=== PATIENT | male | born 1930 | race Caucasian/White ===

== ENCOUNTER → 2016-09-28 | Outpatient (CLI) | payer MEDICARE | LOC: ZCOL.LAB 12:59 | DX: R60.0 Localized edema (principal) ==

== ENCOUNTER 2017-01-02 06:52 | Day surgery (SDC) | payer MEDICARE ==
[~2017-01-02] VITALS: Ht 172.7 cm; Wt 79.1 kg
[2017-01-02 07:45] LABS: HEMATOCRIT 40.6 % (42.0-52.0); HEMOGLOBIN 13.6 g/dl (13.5-18.0); MEAN CELL VOLUME 88 fl (80.0-100.0); MEAN CORPUSCULAR HEMOGLOBIN 29 pg (27.0-31.0); MEAN CORPUSCULAR HGB CONC 34 g/dl (33.0-37.0); MEAN PLATELET VOLUME 9.9 fl (7.4-10.4); PLATELET COUNT 141 K/mm3 (130-400); RED BLOOD COUNT 4.62 M/mm3 (4.20-5.60); WHITE BLOOD COUNT 6.5 K/mm3 (4.8-10.8)
[2017-01-02] MEDS ORDERED: COUMADIN 2MG2 MG/TAB PO (07:52)
[2017-01-02] MEDS ORDERED: CRESTOR 10MG10 MG PO (07:53)
[2017-01-02] MEDS ORDERED: FLOMAX 0.40.4 MG/CAP PO (07:53)
[2017-01-02 07:54] LABS: INR 1.3 (0.8-3.0); PROTHROMBIN TIME 14.9 SECONDS (9.7-12.8)
[2017-01-02] MEDS ORDERED: COREG 3.123.125 MG/T PO (07:54)
[2017-01-02] MEDS ORDERED: PRINIVIL5 MG PO (07:54)
[2017-01-02] MEDS ORDERED: LASIX 20MG TABL20 MG PO (07:55)
[2017-01-02] MEDS ORDERED: VITAMIN D 1001000 IU PO (07:56)
[2017-01-02] MEDS ORDERED: MULTI VITAMINS1 TAB PO (07:57)
[2017-01-02 08:01] LABS: CALCIUM 9.3 mg/dL (8.4-10.2); CREATININE, serum 0.96 mg/dL (0.66-1.25); POTASSIUM 4.2 mmol/L (3.4-5.0)
[2017-01-02 08:15] VITALS: BP 127/66; PULSE 68; TEMP 96.9
[2017-01-02 09:12] VITALS: BP 135/83; PULSE 62
[2017-01-02 09:54] VITALS: BP 151/84; PULSE 61
== END 2017-01-02 09:54 | disposition home or self-care (01) ==
LOC: COL.CAR 06:52
PROVIDERS: Internal Medicine Cardiovascular Disease
DX: I50.9 Heart failure, unspecified (principal); I42.9 Cardiomyopathy, unspecified; I25.10 Atherosclerotic heart disease of native coronary artery without angina pectoris; Z95.1 Presence of aortocoronary bypass graft; I08.0 Rheumatic disorders of both mitral and aortic valves; I27.20 Pulmonary hypertension, unspecified; I48.2 Chronic atrial fibrillation; I25.2 Old myocardial infarction
CPT/HCPCS: Q9967

== ENCOUNTER 2017-10-12 18:46 | Inpatient (IN) | payer MEDICARE ==
[~2017-10-12] VITALS: Ht 172.7 cm; Wt 76.7 kg
[~2017-10-12 18:46] MED LIST: COREG 3.123.125 MG/T PO; COUMADIN 2MG2 MG/TAB PO; CRESTOR 10MG10 MG PO; FLOMAX 0.40.4 MG/CAP PO; LASIX 20MG TABL20 MG PO; MULTI VITAMINS1 TAB PO; PRINIVIL5 MG PO; VITAMIN D 1001000 IU PO
[2017-10-12 19:26] LABS: BASO % 0.3 % (0.0-2.0); EOS # 0.5 (0.0-0.7); EOS % 4.8 % (0-4.0); GRAN # 7.4 (1.4-6.5); GRAN % 77.1 % (42.2-75.2); HEMATOCRIT 41.7 % (42.0-52.0); HEMOGLOBIN 13.9 g/dl (13.5-18.0); LYMPH # 0.7 (1.2-3.4); LYMPH % 7.7 % (20.0-51.0); MEAN CELL VOLUME 90 fl (80.0-100.0); MEAN CORPUSCULAR HEMOGLOBIN 30 pg (27.0-31.0); MEAN CORPUSCULAR HGB CONC 33 g/dl (33.0-37.0); MEAN PLATELET VOLUME 10.1 fl (7.4-10.4); MONO # 0.9 (0.1-0.6); MONO % 9.8 % (1.7-9.3); PLATELET COUNT 113 K/mm3 (130-400); RED BLOOD COUNT 4.63 M/mm3 (4.20-5.60); REDCELL DISTRIBUTION WIDTH-CV 13.6 % (11.5-14.5)
[2017-10-12 19:39] LABS: ALANINE AMINOTRANSFERASE 35 U/L (21-72); ALBUMIN 4.4 gm/dL (3.5-5.0); ALKALINE PHOSPHATASE 112 U/L (50-136); ANION GAP 10 mmol/L (7-16); AST,SGOT 34 U/L (15-37); BILIRUBIN,TOTAL 1.3 mg/dL (0.0-1.0); BLOOD UREA NITROGEN 30 mg/dL (9-20); C-REACTIVE PROTEIN 3.6 mg/dL (0.0-0.9); CALCIUM 8.9 mg/dL (8.4-10.2); CARBON DIOXIDE 30 mmol/L (22-30); CHLORIDE 99 mmol/L (98-107); GLUCOSE 134 mg/dL (74-106); POTASSIUM 4.2 mmol/L (3.4-5.0); SODIUM 139 mmol/L (137-145); TOTAL PROTEIN 7.9 gm/dL (6.4-8.2)
[2017-10-12 19:56] LABS: TROPONIN-I < 0.012 ng/mL (0.000-0.034)
[2017-10-12 20:00] VITALS: BP 106/49; PULSE 68; TEMP 99
[2017-10-12 20:23] LABS: INR 2.4 (0.8-3.0); PROTHROMBIN TIME 27.3 SECONDS (9.7-12.8)
[2017-10-12 22:42] VITALS: BP 102/57; PULSE 75; TEMP 99.4
[2017-10-13 01:00] VITALS: BP 102/57; PULSE 75; TEMP 99
[2017-10-13 05:27] VITALS: BP 101/57; PULSE 67; TEMP 99.6
[2017-10-13 07:12] LABS: BASO % 0.3 % (0.0-2.0); EOS # 0.4 (0.0-0.7); EOS % 4.1 % (0-4.0); GRAN # 6.5 (1.4-6.5); GRAN % 73.3 % (42.2-75.2); LYMPH # 0.8 (1.2-3.4); LYMPH % 9.1 % (20.0-51.0); MEAN CELL VOLUME 92 fl (80.0-100.0); MEAN CORPUSCULAR HGB CONC 32 g/dl (33.0-37.0); MEAN PLATELET VOLUME 10.3 fl (7.4-10.4); MONO # 1.1 (0.1-0.6); MONO % 12.7 % (1.7-9.3); PLATELET COUNT 87 K/mm3 (130-400); RED BLOOD COUNT 4.01 M/mm3 (4.20-5.60); REDCELL DISTRIBUTION WIDTH-CV 13.7 % (11.5-14.5)
[2017-10-13 07:17] LABS: HEMATOCRIT 36.8 % (42.0-52.0); HEMOGLOBIN 11.9 g/dl (13.5-18.0); MEAN CORPUSCULAR HEMOGLOBIN 30 pg (27.0-31.0)
[2017-10-13 07:24] LABS: CALCIUM 7.7 mg/dL (8.4-10.2); CREATININE, serum 0.86 mg/dL (0.66-1.25); POTASSIUM 4.3 mmol/L (3.4-5.0)
[2017-10-13 07:33] LABS: INR 2.4 (0.8-3.0); PROTHROMBIN TIME 27.3 SECONDS (9.7-12.8)
[2017-10-13 08:32] VITALS: BP 105/61; PULSE 79; TEMP 98.9
[2017-10-13 12:53] VITALS: BP 102/54; PULSE 62; TEMP 99.3
[2017-10-13 16:31] VITALS: BP 109/55; PULSE 70; TEMP 98.8
[2017-10-13 16:33] LABS: PROCALCITONIN 0.07 ng/mL (0.00-0.09)
[2017-10-13 20:00] VITALS: BP 118/48; PULSE 71; TEMP 98.2
[2017-10-14 00:44] VITALS: BP 125/79; PULSE 72; TEMP 98.2
[2017-10-14 04:55] VITALS: BP 119/70; PULSE 68; TEMP 98
[2017-10-14 08:38] VITALS: BP 116/73; PULSE 84; TEMP 97.5
[2017-10-14] MEDS ORDERED: LASIX 20MG TABL20 MG PO (11:28)
[2017-10-14] MEDS ORDERED: RT ALBUTER2.5 MG/0.5 IH (11:29)
[2017-10-14] MEDS ORDERED: DOXYCYCLINE 10100 MG PO (11:31)
[2017-10-14 12:24] VITALS: BP 118/57; PULSE 68; TEMP 97.6
== END 2017-10-14 13:07 | disposition home or self-care (01) | DRG 194 ==
LOC: COL.ER 18:46 → MEDICAL 20:25
PROVIDERS: Emergency Medicine; Nurse Practitioner Family
DX: J18.9 Pneumonia, unspecified organism (principal); J90 Pleural effusion, not elsewhere classified; Z66 Do not resuscitate; I25.10 Atherosclerotic heart disease of native coronary artery without angina pectoris; I11.0 Hypertensive heart disease with heart failure; I48.91 Unspecified atrial fibrillation; I50.9 Heart failure, unspecified; Z95.0 Presence of cardiac pacemaker; Z95.1 Presence of aortocoronary bypass graft
CPT/HCPCS: 99222-AI; 99239; J0456; J0696; J7030; J7050

== ENCOUNTER 2018-12-11 09:00 | Outpatient (RCR) | payer MEDICARE ==
[~2018-12-11 09:00] MED LIST changes: +DOXYCYCLINE 10100 MG PO; +RT ALBUTER2.5 MG/0.5 IH
== END 2018-12-16 12:13 | disposition home or self-care (01) ==
LOC: MKS.ESL.PT 09:00
DX: M25.561 Pain in right knee (principal); M25.562 Pain in left knee

== ENCOUNTER 2021-04-14 21:26 | Emergency (ER) | payer MEDICARE ==
[~2021-04-14] VITALS: Ht 172.7 cm; Wt 74.1 kg
[2021-04-14 21:46] VITALS: TEMP 97.2
[2021-04-14 22:16] LABS: BASO # 0.1 K/mm3 (0.0-0.2); BASO % 1.3 % (0.0-2.0); EOS # 0.3 K/mm3 (0.0-0.7); EOS % 5.5 % (0.0-4.0); GRAN # 3.3 K/mm3 (1.4-6.5); GRAN % 61.2 % (42.2-75.2); HEMOGLOBIN 10.5 g/dl (13.5-18.0); LYMPH # 1.1 K/mm3 (1.2-3.4); LYMPH % 19.3 % (20.0-51.0); MEAN CELL VOLUME 90 fl (80.0-100.0); MEAN CORPUSCULAR HEMOGLOBIN 29 pg (27-31); MEAN CORPUSCULAR HGB CONC 32 g/dl (33.0-37.0); MEAN PLATELET VOLUME 11.1 fl (7.4-10.4); MONO # 0.7 K/mm3 (0.1-0.6); MONO % 12.3 % (1.7-9.3); PLATELET COUNT 105 K/mm3 (130-400); RED BLOOD COUNT 3.64 M/mm3 (4.20-5.60); REDCELL DISTRIBUTION WIDTH-CV 15.2 % (11.5-14.5)
[2021-04-14 22:21] LABS: HEMATOCRIT 32.8 % (42.0-52.0)
[2021-04-14 22:23] LABS: INR 3.5 (0.8-3.0); PROTHROMBIN TIME 39.4 SECONDS (9.7-12.8)
[2021-04-14 22:34] LABS: ALBUMIN 3.9 gm/dL (3.4-4.8); BILIRUBIN,TOTAL 1.5 mg/dL (0.2-1.2); CREATININE, serum 1.34 mg/dL (0.72-1.25); POTASSIUM 3.5 mmol/L (3.5-4.5); TOTAL PROTEIN 7.1 gm/dL (6.2-8.1)
[2021-04-15 00:06] VITALS: BP 131/70; PULSE 72
== END 2021-04-15 00:16 | disposition home or self-care (01) ==
LOC: COL.ER 21:26
PROVIDERS: Nurse Practitioner
DX: S51.012A Laceration without foreign body of left elbow, initial encounter (principal); S80.01XA Contusion of right knee, initial encounter; R79.0 Abnormal level of blood mineral; I11.0 Hypertensive heart disease with heart failure; I50.9 Heart failure, unspecified; I25.10 Atherosclerotic heart disease of native coronary artery without angina pectoris; I48.91 Unspecified atrial fibrillation; E78.5 Hyperlipidemia, unspecified; N40.0 Benign prostatic hyperplasia without lower urinary tract symptoms; I25.2 Old myocardial infarction; Z79.01 Long term (current) use of anticoagulants; Z79.899 Other long term (current) drug therapy; W01.198A Fall on same level from slipping, tripping and stumbling with subsequent striking against other object, initial encounter